=== PATIENT | male | born 1995 | race Caucasian/White ===

== ENCOUNTER → 2017-01-08 | Outpatient (CLI) | payer BC ==
[2016-01-04 16:30] VITALS: BP 125/76
--- NOTE | 2017-01-09 08:32 | MRI ---
MRI OF THE BRAIN WITHOUT IV CONTRAST CLINICAL INDICATION: Auditory hallucinations TECHNIQUE: Pre-contrast T1-w, T2, and diffusion-w sequences of the brain with ADC maps. COMPARISON: CT head 07/29/2015 FINDINGS: There is no abnormal brain parenchymal signal. There is no mass or mass-effect, or abnormal extra-axi al fluid collection. Diffusion imaging shows no hyperacute, acute, or early subacute infarction. The ventricles are normal in size, shape and position. There are normal signal voids in the larger intra cranial vessels. The paranasal sinuses and mastoid air cells are predominantly clear. The marrow sign al pattern is within normal limits. IMPRESSION: 1. Normal unenhanced MRI of the brain. Reported By:
== END ==
LOC: RAD 12:59
PROVIDERS: ATTEND Internal Medicine
DX: R44.0 Auditory hallucinations (principal)
CPT/HCPCS: 70551